=== PATIENT | female | born 1970 | race Two or more races ===

== ENCOUNTER 2019-04-16 12:11 | Emergency (ER) | payer BC ==
[2019-04-16] MEDS ORDERED: diphenhydrAMINE 50 MG CAP PO STA (13:48)
[2019-04-16] MEDS ORDERED: ONDANSETRON ODT 4 MG TAB PO STA (13:48)
[2019-04-16] MEDS ORDERED: KETOROLAC 30 MG/ML 1 ML VIAL IM STA (13:48)
--- NOTE | 2019-04-16 14:02 | ED ---
General Adult HPI - General Chief complaint: Headache Stated complaint: Headache/eye pain, dizzy Time Seen by Provider: 04/16/19 13:26 Source: patient Mode of arrival: ambulatory Limitations: no limitations - History of Present Illness Initial comments: patient is a 48-year-old male presenting to the emergency department with a chief complaint of a headache. Patient reports her symptoms began yesterday with a headache located to the left orbital region. Patient has a history of headaches but nothing this severe. Patient reports the pain is throbbing and has been going on and episodes over the past day. Patient denies photosensitivity nausea or vomiting. Patient does report lacrimation the left eye but she denies any conjunctival injection. Patient states it was a gradual onset of the pain and this is not the worse headache in her life. Patient denies any sinus congestion and left-sided. Patient denies taking medication to alleviate the symptoms. - Related Data Home Medications Medication Instructions Recorded Confirmed Ibuprofen [Motrin Ib] 200 mg PO Q6H PRN 04/16/19 04/16/19 Allergies Allergy/AdvReac Type Severity Reaction Status Date / Time No Known Allergies Allergy Unverified 04/16/19 13:58 Review of Systems ROS Statement: Those systems with pertinent positive or pertinent negative responses have been documented in the HPI. ROS Other: All systems not noted in ROS Statement are negative. Past Medical History Past Medical History: No Reported History History of Any Multi-Drug Resistant Organisms: None Reported Past Surgical History: Section Past Psychological History: No Psychological Hx Reported Smoking Status: Current every day smoker Past Alcohol Use History: Occasional Past Drug Use History: None Reported General Exam Limitations: no limitations General appearance: alert, in no apparent distress Head exam: Present: atraumatic, normocephalic, normal inspection Eye exam: Present: normal appearance, PERRL, EOMI. Absent: scleral icterus, conjunctival injection, nystagmus Pupils: Present: normal accommodation ENT exam: Present: normal exam, normal oropharynx, mucous membranes moist, TM's normal bilaterally, normal external ear exam Neck exam: Present: normal inspection, full ROM. Absent: lymphadenopathy Respiratory exam: Present: normal lung sounds bilaterally Cardiovascular Exam: Present: regular rate, normal rhythm, normal heart sounds Extremities exam: Present: normal inspection, full ROM Back exam: Present: normal inspection, full ROM Neurological exam: Present: alert, oriented X3, CN II-XII intact, normal gait Psychiatric exam: Present: normal affect, normal mood Skin exam: Present: warm, intact, normal color Course Vital Signs 04/16/19 04/16/19 12:35 15:49 Temperature 98.0 F 99.1 F Pulse Rate 84 66 Respiratory 18 16 Rate Blood Pressure 135/62 120/77 O2 Sat by Pulse 99 100 Oximetry Medical Decision Making - Medical Decision Making Patient is a 48-year-old male presenting to the emergency department with a chief complaint of a headache. Headache has been only on one for about one day and is located to the left orbital region. Patient does appear to have excess lacrimation from the left eye. Although patient does not have any sinus congestion and left-sided or conjunctival injections. I suspect the patient to have a cluster headache. Patient was sent from her primary care for further evaluation in the ED. CT of the brain is negative for acute hemorrhage or dementia. Patient given high flow oxygen. A reevaluation patient reports improvement in her symptoms and is ready go home. Strict return parameters were thoroughly discussed the patient was understanding and agreeable. Patient advised to follow-up with neurology. Case discussed with physician. Disposition Clinical Impression: Cluster headache Disposition: HOME SELF-CARE Condition: Stable Instructions (If sedation given, give patient instructions): Acute Headache (ED) Additional Instructions: Please follow up with neurology. Alternate between Tylenol and ibuprofen for pain control. Please return to emergency department if symptoms worsen. Is patient prescribed a controlled substance at d/c from ED?: No Referrals: Umair Urias MD [Primary Care Provider] - 1-2 days Arcadio Ahumada MD [STAFF PHYSICIAN] - 1-2 days Time of Disposition: 14:58
--- NOTE | 2019-04-16 14:44 | CT ---
EXAMINATION TYPE: CT brain wo con DATE OF EXAM: 04/16/2019 COMPARISON: NONE HISTORY: Headache, Dizziness CT DLP: 1074.4 mGycm. Automated Exposure Control for Dose Reduction was Utilized. TECHNIQUE: CT scan of the head is performed without contrast. FINDINGS: There is no acute intracranial hemorrhage, mass effect, or midline shift identified. No s uspicious extra-axial fluid collection. The ventricles and sulci are within normal limits in size. The globes are intact and the visualized sinuses are clear. IMPRESSION: No acute intracranial hemorrhage, mass effect, or midline shift is seen.
[2019-04-16 15:51] VITALS: BP 120/77; PULSE 66; RESP 16; TEMP 99.1
== END 2019-04-16 15:49 | disposition home or self-care (01) ==
LOC: EC 12:11
DX: G44.009 Cluster headache syndrome, unspecified, not intractable (principal); F17.200 Nicotine dependence, unspecified, uncomplicated
CPT/HCPCS: 70450; 99284

== ENCOUNTER → 2019-04-29 | Outpatient (CLI) | payer BC ==
--- NOTE | 2019-04-29 20:14 | MR ---
EXAMINATION TYPE: MR brain wo/w con DATE OF EXAM: 04/29/2019 COMPARISON: CT brain April 16, 2019 HISTORY: Headaches. TECHNIQUE: Multiplanar, multisequence images of the brain and brainstem is performed without and with IV contras t, utilizing 7.5 mL intravenous Gadavist . FINDINGS: Diffusion weighted images demonstrate no evidence of a recent infarct or other diffusion ab normality. There is no extra-axial fluid collection or significant white matter signal abnormality. The ventricular system and cisternal spaces are normal in size and appearance. The brain volume is age appropriate. Midline structures demonstrate normal morphology. The craniocervical junction appears within normal limits. Post contrast images demonstrate no abnormal enhancement. The dural venous sinuses appear pa tent. The visualized sinuses are clear and the globes are intact. IMPRESSION: Unremarkable study.
--- NOTE | 2019-04-29 20:15 | MR ---
EXAMINATION TYPE: MR angio head wo con DATE OF EXAM: 04/29/2019 COMPARISON: Same day MRI. CT brain April 16, 2019. HISTORY: Headaches. TECHNIQUE: Time of flight images focusing on the [place] were performed without contrast.. 2-D and 3-D postprocessing imaging is performed on independent workstation and reviewed. FINDINGS: There is codominant vertebrobasilar system. Vertebral arteries are patent to basilar juncti on. There is no significant focal stenosis or aneurysmal change in the posterior circulation. There a re patent bilateral posterior communicating arteries. Anterior circulation shows small caliber but patent anterior communicating artery. No significant foc al stenosis or aneurysmal change is present. Slightly tortuous course to the right anterior cerebral artery incidentally noted. IMPRESSION: No aneurysmal change at the level of the [place].
== END | disposition home or self-care (01) ==
LOC: RADMRIMAIN 19:01
PROVIDERS: ATTEND Family Medicine
DX: R51 Headache (principal)
CPT/HCPCS: 70544; 70553; A9585